=== PATIENT | female | born 1935 | race Caucasian/White ===

== ENCOUNTER → 2019-02-24 | Outpatient (CLI) | payer MEDICARE, OTHER ==
--- NOTE | 2019-02-27 16:38 | EEG ---
DATE OF SERVICE: 02/24/2019 EEG NUMBER: [id number] OBJECTIVE: The patient is an 83-year-old female with a feeling of inner tremor and myoclonus, rule out seizure activity. DESCRIPTION: This is a digital study. Electrodes are placed according to the international 10-20 system. Bipolar and referential montages are available. Activation procedures typically include hyperventilation and intermittent photic stimulation. INTERPRETATION: The waking background consists of 9-10 Hz, 50-100 microvolt activity, symmetrically distributed over parietooccipital regions and reactive to eye opening. Hyperventilation and intermittent photic stimulation are noncontributory. Stage 2 sleep was achieved with normal electroencephalogram patterns. All computer-identified abnormalities are reviewed and none are truly abnormal. IMPRESSION: This electroencephalogram with the patient awake and asleep is within normal limits. There is no focal, paroxysmal, or epileptiform activity. Thank you for letting us help with the patient's care. ALINE HUIZAR MD DR: LULY/jamie JOB#: [id number] / [id number] MICHAEL Cottrell MD
== END | disposition home or self-care (01) ==
LOC: RT 12:47
PROVIDERS: ATTEND Psychiatry & Neurology Neurology with Special Qualifications in Child Neurology
DX: G25.3 Myoclonus (principal); F48.1 Depersonalization-derealization syndrome
CPT/HCPCS: 95816